=== PATIENT | male | born 1950 | race Caucasian/White ===

== ENCOUNTER 2019-05-11 12:34 | Outpatient (CLI) | payer MEDICARE ==
[2019-05-13] MEDS ORDERED: ATOR10TA70 PO (11:40)
[2019-05-13] MEDS ORDERED: FLO0.4C PO (11:40)
[2019-05-13] MEDS ORDERED: LISI-600 PO (11:40)
== END 2019-05-11 23:59 | disposition home or self-care (01) ==
LOC: RAD 12:34
PROVIDERS: ATTEND Orthopaedic Surgery
DX: M48.062 Spinal stenosis, lumbar region with neurogenic claudication (principal); M51.16 Intervertebral disc disorders with radiculopathy, lumbar region; M21.372 Foot drop, left foot; M21.371 Foot drop, right foot; M54.5 Low back pain; N20.0 Calculus of kidney
CPT/HCPCS: 72131; 72148

== ENCOUNTER 2022-03-06 08:37 | Outpatient (CLI) | payer MEDICARE ==
[~2022-03-06 08:37] MED LIST: ATOR10TA70 PO; FLO0.4C PO; HYDR-4353 PO; LISI20TA28 PO
== END 2022-03-06 23:59 | disposition home or self-care (01) ==
LOC: RAD 08:37
PROVIDERS: ATTEND Internal Medicine Pulmonary Disease
DX: G47.31 Primary central sleep apnea (principal); I10 Essential (primary) hypertension
CPT/HCPCS: 93306